=== PATIENT | female | born 1940 | race Caucasian/White ===

== ENCOUNTER 2025-01-09 19:48 | Emergency (ER) | payer MEDICARE ==
[~2025-01-09] VITALS: Ht 162.6 cm; Wt 81.7 kg
[~2025-01-09 19:48] MED LIST: ALLO100 PO; ASPI81CH PO; ATOR20 PO; ELIQUIS5 M2 PO; FISH OIL 1,0001 EA10 PO; GABA100 PO; HUMALOG100 UNIT/1; INSULANI SC; INSULIN LI100 UNIT/6 SC; JARDIANCE10 MG PO; LEVSOD75 PO; METF500 PO; OMEPRAZOLE MAGN20 MG PO; PANT20 PO; PLAVIX75 MG PO; Prozac20 MG PO; SYNTHROID25 M12 PO
[2025-01-09] MEDS ORDERED: Propofol 10mg/ml 20 ml Vial (Procedural) IV ONE (20:55)
[2025-01-09] MEDS ORDERED: FentaNYL Citrate 50 MCG/ML 2 ML Injection IV ONE (21:15)
== END 2025-01-10 05:30 | disposition home or self-care (01) ==
LOC: ER 19:48
DX: T84.020A Dislocation of internal right hip prosthesis, initial encounter (principal); I25.10 Atherosclerotic heart disease of native coronary artery without angina pectoris; E11.9 Type 2 diabetes mellitus without complications; K21.9 Gastro-esophageal reflux disease without esophagitis; I50.20 Unspecified systolic (congestive) heart failure; I48.0 Paroxysmal atrial fibrillation; Z95.2 Presence of prosthetic heart valve; Z88.0 Allergy status to penicillin; Z79.4 Long term (current) use of insulin; Z79.84 Long term (current) use of oral hypoglycemic drugs; Z79.890 Hormone replacement therapy; Z79.01 Long term (current) use of anticoagulants; Z79.82 Long term (current) use of aspirin; Z79.899 Other long term (current) drug therapy; X50.0XXA Overexertion from strenuous movement or load, initial encounter
CPT/HCPCS: 27265; 73501; 73502; 96374-59; 99284-25; A6590; J2704; J3010